=== PATIENT | female | born 1965 | race Caucasian/White ===

== ENCOUNTER 2019-11-08 13:31 | Emergency (ER) | payer OTHER, SELFPAY ==
[2019-11-08 13:38] VITALS: BP 155/79; PULSE 72; RESP 16; TEMP 37.2; O2SAT 99
--- NOTE | 2019-11-08 13:43 | ED.ABDPAIN ---
HPI - Abdominal Pain General Chief Complaint: Abdominal Pain Stated Complaint: upset stomach/diarrhea Time Seen by Provider: 11/08/19 13:43 Source: patient and RN notes reviewed History of Present Illness HPI narrative: Patient is a 53-year-old female who presents the urgent care with complaints of diarrhea for the last 2 to 3 days. Patient states that she was gone for the weekend and ate a bunch of crappy food . Patient states that she has been trying to follow a specific diet ever since her gallbladder has been removed approximately 1 year ago, but knows that she does not eat according to plan. 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 Patient states that she has been COVID tested and [place], which was negative. Patient states at that time she was hospitalized due to E. coli in the urine. Patient is now complaining of some lower abdominal cramping as well as the loose stools. Patient denies of any fever, nausea, vomiting. Patient has not taken anything for her symptoms [id number]. Patient denies of any urinary symptoms but does state that her urine is yellow . Patient's main concern is a work note. No other acute complaints. No acute distress noted. Patient read the plan of care. Related Data Home Medications Medication Instructions Recorded Confirmed primidone 250 mg PO DAILY 11/08/19 11/08/19 Allergies Allergy/AdvReac Type Severity Reaction Status Date / Time No Known Allergies Allergy Verified 11/08/19 13:48 Review of Systems Review of Systems: Narrative: CONSTITUTIONAL: Denies fever, chills, or sweats. EYES: Denies visual changes, redness, or discharge. ENT: Denies rhinorrhea, congestion, sore throat, or otalgia. CARDIOVASCULAR: Denies chest pain, palpitations, or edema. RESPIRATORY: Denies cough or dyspnea. GASTROINTESTINAL: Reports of lower abdominal cramping with loose stools, without nausea or vomiting GENITOURINARY: Denies dysuria or hematuria. SKIN: Denies rash or itching. MUSCULOSKELETAL: Denies back pain, joint pain, or myalgia. NEUROLOGIC: Denies headache, numbness, or weakness. All other systems reviewed are negative, except as documented in HPI. [facility] Family History Family History (Updated 08/03/18 @ 10:34 by DOCTOR UNKNOWN) Father Diabetes mellitus Sibling Hypertension Family history of malignant neoplasm of breast in first degree relative Other Family history of malignant neoplasm Social History Social History Smoking status: Current every day smoker Alcohol intake: never Comments At the time of my signature, I reviewed and agree with the nursing past medical, surgical, social, and family history. There is no relevant family history pertinent to the patient complaint. Exam Narrative: Exam Narrative: GENERAL: This is a well-nourished, well-developed patient, in no apparent distress. HEAD: normocephalic, atraumatic. EYES: PERRL. Sclera clear/white. Vision is grossly intact. EARS: External ears normal NOSE: External nose normal with no obvious nasal discharge, nares without redness, no rhinorrhea. THROAT: Mucous membranes moist NECK: Neck supple CARDIOVASCULAR: Regular rate and rhythm without murmurs, gallops, or rubs. RESPIRATORY: Clear to auscultation. Breath sounds equal bilaterally. No wheezes, rales, or rhonchi. GASTROINTESTINAL: Abdomen soft, diffuse lower abdominal tenderness, nondistended. Bowel sounds are active. No hepato-splenomegaly, or palpable masses. No guarding. SKIN: warm, intact with no suspicious lesions or rash, good texture and turgor. NEURO: awake, alert, and oriented to person, place and time. There were no obvious focal neurologic abnormalities. EXTREMITIES: No clubbing, cyanosis, or edema. BACK: Negative bilateral CVA tenderness Course Vital Signs Vital signs: Vital Signs Temperature 98.9 F 11/08/19 13:38 Pulse Rate 72 11/08/19 13:38 Respiratory Rate 16 11/08/19 13:38
== END 2019-11-08 14:20 | disposition home or self-care (01) ==
PROVIDERS: Emergency Provider Nurse Practitioner Family; PCP Nurse Practitioner
DX: R19.7 Diarrhea, unspecified (principal); G20 Parkinson's disease
CPT/HCPCS: 81003; 99212; G0463

== ENCOUNTER 2020-05-12 10:00 | Emergency (ER) | payer OTHER, SELFPAY ==
--- NOTE | ~2020-05-12 | XR_ITS ---
EXAMINATION: XR foot RT min 3V DATE: 05/12/2020 10:30 INDICATION: Right foot pain. TECHNIQUE: 4 views of right foot were obtained. COMPARISON: None. FINDINGS: Bone alignment is normal. No fracture. Joint spaces are well maintained. There are enthesop hytes at the posterior and plantar aspects of calcaneal tuberosity. IMPRESSION: 1. No fracture. Reviewed, dictated and finalized at location A. [facility] IMPRESSION: 1. No fracture.
[2020-05-12 10:04] VITALS: BP 181/72; PULSE 79; RESP 20; TEMP 36.7; O2SAT 99
[2020-05-12 10:26] VITALS: BP 181/72; PULSE 79; RESP 20; TEMP 36.7; O2SAT 99
--- NOTE | 2020-05-12 10:36 | ED.GENADULT ---
HPI - General Adult General Chief complaint: Extremity Injury, Lower Stated complaint: rt foot heel pain Time Seen by Provider: 05/12/20 10:25 Source: patient, RN notes reviewed and old records reviewed Mode of arrival: ambulatory Limitations: no limitations History of Present Illness HPI narrative: 54 year old female who presents to [facility] care with complaints of right heel pain for one week duration. Patient states that pain is a 2/10 at rest but increases to 7/10 with any weight bearing and becomes sharp. 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 Patient states that she knows no injury to her heel or foot, has applied bengay to her heel complaint: Pain to right heel Onset (ago): week(s) (1) Location: right and lower extremity (heel) Radiation: non-radiation Severity: moderate Severity scale (1-10): 7 (with ambulation) Quality: sharp Pain Consistency: constant Relieving factors: rest (reduces pain) Exacerbating factors: other (ambulation) Associated symptoms: denies other symptoms Treatments prior to arrival: other (applied bengay to heel) Related Data Home Medications Medication Instructions Recorded Confirmed primidone 250 mg PO BID 11/08/19 05/12/20 aspirin 81 mg PO DAILY 05/12/20 05/12/20 cholecalciferol (vitamin D3) 125 mcg PO DAILY 05/12/20 05/12/20 [Vitamin D3] sofylflmege-[id number]-[id number] 1 tablet PO DAILY 05/12/20 05/12/20 [glucosamine-chondroitin] Allergies Allergy/AdvReac Type Severity Reaction Status Date / Time No Known Allergies Allergy Verified 05/12/20 10:18 Review of Systems Review of Systems: Narrative: CONSTITUTIONAL: Denies fever, chills, or sweats. EYES: Denies visual changes, redness, or discharge. ENT: Denies rhinorrhea, congestion, sore throat, or otalgia. CARDIOVASCULAR: Denies chest pain, palpitations, or edema. RESPIRATORY: Denies cough or dyspnea. GASTROINTESTINAL: Denies abdominal pain, nausea, vomiting, or diarrhea. GENITOURINARY: Denies dysuria or hematuria. SKIN: Denies rash or itching. MUSCULOSKELETAL: Denies back pain,positive for right heel pain, or myalgia. NEUROLOGIC: Denies headache, numbness, or weakness. PSYCHIATRIC: Denies anxiety or depression. All systems reviewed & are unremarkable except as noted in HPI and below PMFSH Past Medical History Medical History (Updated 05/12/20 @ 11:09 by Ning Rios NP) DVT (deep venous thrombosis) Endometriosis Fracture of left leg Fracture of right upper limb Hypertension Parkinson disease Surgical History Surgical History (Updated 05/12/20 @ 11:00 by Ning Rios NP) H/O tubal ligation History of cholecystectomy History of endometrial ablation Previous section Family History Family History (Updated 05/12/20 @ 11:02 by Ning Rios NP) Father Diabetes mellitus Sibling Family history of malignant neoplasm of breast in first degree relative Hypertension Other Family history of malignant neoplasm Social History Social History (Updated 05/12/20 @ 11:02 by Ning Rios NP) Smoking packs per day: 1 Smoking cigarettes per day: 20.0 Years smoked: 35 Smoking pack-years: 35.00 Smoking status: Current every day smoker Tobacco type: cigarettes Alcohol intake: never Substance use: never Living arrangements: with family Gender identity (if verbalized by the patient): Female Comments At time of signature, agree with nursing past medical, surgical, social and family history. There is no relevant family history pertinent to the presenting complaint Exam Narrative: Exam Narrative: GENERAL: Well-appearing, well-nourished, and in no acute distress. HEAD: Normocephalic, atraumatic. EYES: PERRLA and EOMI. ENT: Nares clear, no rhinorrhea or epistaxis. Mucous membranes moist. NECK: Supple.no lymphadenopathy CHEST: Clear to auscultation. No respiratory distress.SAO2 99% on room air HEART: Regular rate and rhythm. No murmur heard.
== END 2020-05-12 10:58 | disposition home or self-care (01) ==
PROVIDERS: Emergency Provider Registered Nurse
DX: M77.31 Calcaneal spur, right foot (principal); F17.210 Nicotine dependence, cigarettes, uncomplicated; I10 Essential (primary) hypertension; G20 Parkinson's disease; N80.9 Endometriosis, unspecified; Z86.718 Personal history of other venous thrombosis and embolism
CPT/HCPCS: 73630; 99213; G0463

== ENCOUNTER 2021-06-10 13:18 | Emergency (ER) | payer OTHER, SELFPAY ==
[2021-06-10 13:23] VITALS: BP 128/75; PULSE 94; RESP 20; TEMP 37.3; O2SAT 98
--- NOTE | 2021-06-10 13:26 | ED.URI ---
HPI - URI/Sore Throat General Chief Complaint: Upper Respiratory Infection Stated Complaint: congestion cough and sore throat Time Seen by Provider: 06/10/21 13:26 Source: patient and RN notes reviewed History of Present Illness HPI Narrative: Patient is a 55-year-old female who presents the urgent care with complaints of a sore throat, cough and congestion for the last 3 days. Patient states that her son is been complaining of a sore throat and refuses to get evaluated. Patient states that she just wants to make sure she is not contagious . Patient has been taking Tylenol Cold and flu. Denies any fever, chills, nausea, vomiting, shortness of breath or chest tightness. No other acute complaints. No acute distress noted. Patient aware of the plan of care. Some parts of this dictation were generated by voice recognition software and may contain typographical and/or grammatical inaccuracies. Related Data Home Medications Medication Instructions Recorded Confirmed primidone 250 mg PO BID 11/08/19 05/12/20 aspirin [Baby Aspirin] 81 mg PO DAILY 06/10/21 06/10/21 lisinopril 20 mg PO DAILY 06/10/21 06/10/21 Allergies Allergy/AdvReac Type Severity Reaction Status Date / Time No Known Allergies Allergy Verified 06/10/21 13:35 Review of Systems Review of Systems: CONSTITUTIONAL: Denies fever, chills, or sweats. EYES: Denies visual changes, redness, or discharge. ENT: Reports of congestion and sore throat CARDIOVASCULAR: Denies chest pain, palpitations, or edema. RESPIRATORY: Reports a mild nonproductive cough without dyspnea GASTROINTESTINAL: Denies abdominal pain, nausea, vomiting, or diarrhea. GENITOURINARY: Denies dysuria or hematuria. SKIN: Denies rash or itching. MUSCULOSKELETAL: Denies back pain, joint pain, or myalgia. NEUROLOGIC: Denies headache, numbness, or weakness. All other systems reviewed are negative, except as documented in HPI. [facility] Past Medical History Medical History (Updated 06/10/21 @ 13:42 by MINH Conklin) DVT (deep venous thrombosis) Endometriosis Fracture of left leg Fracture of right upper limb Hypertension Parkinson disease Surgical History Surgical History (Updated 05/12/20 @ 11:00 by Ning Rios NP) H/O tubal ligation History of cholecystectomy History of endometrial ablation Previous section Family History Family History (Updated 05/12/20 @ 11:02 by Ning Rios NP) Father Diabetes mellitus Sibling Family history of malignant neoplasm of breast in first degree relative Hypertension Other Family history of malignant neoplasm Social History Social History (Updated 05/12/20 @ 11:02 by Ning Rios NP) Smoking packs per day: 1 Smoking cigarettes per day: 20.0 Years smoked: 35 Smoking pack-years: 35.00 Smoking status: Current every day smoker Tobacco type: cigarettes Alcohol intake: never Substance use: never Gender identity (if verbalized by the patient): Female Comments At the time of my signature, I reviewed and agree with the nursing past medical, surgical, social, and family history. There is no relevant family history pertinent to the patient complaint. Exam Narrative: GENERAL: This is a well-nourished, well-developed patient, in no apparent distress. HEAD: normocephalic, atraumatic. EYES: PERRL. Sclera clear/white. Vision is grossly intact. EARS: External ears normal, auditory canals clear and without drainage, TMs normal without perforation. Hearing grossly intact. NOSE: External nose normal with no obvious nasal discharge, nares without redness, no rhinorrhea. THROAT: Mucous membranes moist, posterior pharynx clear. Moderate postnasal drainage without exudate or ulceration NECK: Neck supple CARDIOVASCULAR: Regular rate and rhythm without murmurs, gallops, or rubs. RESPIRATORY: Clear to auscultation. Breath sounds equal bilaterally. No wheezes, rales, or rhonchi. SKIN: warm, intact with no suspi
== END 2021-06-10 13:45 | disposition home or self-care (01) ==
PROVIDERS: Emergency Provider Nurse Practitioner Family; PCP Nurse Practitioner Family
DX: J02.9 Acute pharyngitis, unspecified (principal); F17.210 Nicotine dependence, cigarettes, uncomplicated; N80.9 Endometriosis, unspecified; I10 Essential (primary) hypertension; G20 Parkinson's disease; Z86.718 Personal history of other venous thrombosis and embolism
CPT/HCPCS: 87081; 87880; 99213; G0463

== ENCOUNTER 2021-12-02 10:04 | Emergency (ER) | payer OTHER, SELFPAY ==
[2021-12-02 10:10] VITALS: BP 150/92; PULSE 87; RESP 20; TEMP 36.6; O2SAT 100
--- NOTE | 2021-12-02 10:28 | ED.FEMALEGU ---
HPI - Female Genitourinary General Chief complaint: Urogenital-Female Stated complaint: Urinary Problem Time Seen by Provider: 12/02/21 10:28 Source: patient and RN notes reviewed Mode of arrival: ambulatory Limitations: no limitations History of Present Illness HPI Narrative: 56-year-old female presented for complaint of urinary frequency, urgency and burning with urination since yesterday. She endorses waking this morning with a stomachache which is since resolved. She denies hematuria, nausea, vomiting, diarrhea, flank pain, fevers or chills. She has not taken anything for symptoms. Patient is not sexually active. Related Data Home Medications Medication Instructions Recorded Confirmed aspirin 81 mg chewable tablet 81 mg PO DAILY 06/10/21 12/02/21 lisinopril 10 mg tablet 10 mg PO DAILY 12/02/21 12/02/21 lisinopril 20 mg tablet 20 mg PO DAILY 12/02/21 12/02/21 primidone 250 mg tablet 250 mg PO DAILY 12/02/21 12/02/21 topiramate 25 mg tablet 25 mg PO DAILY 12/02/21 12/02/21 Allergies Allergy/AdvReac Type Severity Reaction Status Date / Time No Known Allergies Allergy Verified 12/02/21 10:19 Review of Systems Review of Systems: CONSTITUTIONAL: Denies body aches, fever, chills, or sweats. CARDIOVASCULAR: Denies chest pain, palpitations, or edema. RESPIRATORY: Denies cough or dyspnea. GASTROINTESTINAL: Denies abdominal pain, nausea, vomiting, or diarrhea. GENITOURINARY: Reports dysuria, frequency, urgency, denies hematuria, flank pain SKIN: Denies rash, itching, or wounds. MUSCULOSKELETAL: Denies back pain or myalgia. [facility] Past Medical History Medical History DVT (deep venous thrombosis) Endometriosis Fracture of left leg Fracture of right upper limb Hypertension Parkinson disease Surgical History Surgical History H/O tubal ligation History of cholecystectomy History of endometrial ablation Previous section Family History Family History Father Diabetes mellitus Sibling Family history of malignant neoplasm of breast in first degree relative Hypertension Other Family history of malignant neoplasm Social History Social History Smoking packs per day: 1 Smoking cigarettes per day: 20.0 Years smoked: 35 Smoking pack-years: 35.00 Smoking status: Current every day smoker Tobacco type: cigarettes Alcohol intake: never Substance use: never Gender identity (if verbalized by the patient): Female Comments At time of signature, I have reviewed and agree with nursing past medical, surgical, social and family history unless otherwise noted. Please see nursing chart for further information. There is no relevant family history pertinent to the presenting complaint Exam Narrative: GENERAL: Well-appearing and in no acute distress. CHEST: Clear to auscultation. HEART: Regular rate and rhythm. ABDOMEN: Soft, nontender, nondistended, normal active bowel sounds. No CVA tenderness MUSCULOSKELETAL: No bony tenderness. SKIN: Warm, dry, no rash. NEURO: No focal deficits. Alert and oriented x3. Gait steady. PSYCH: Normal affect. Course Course Emergency Course: Patient is aware of diagnosis, understands and agrees to treatment plan. Anticipatory guidance given. Patient agrees to follow-up as directed and is aware of reasons to seek care at the emergency department. Portions of this record may have been created with voice recognition software Level of Care: Express Care Visit Vital Signs Vital signs: Vital Signs Temperature 97.9 F 12/02/21 10:10 Pulse Rate 87 12/02/21 10:10 Respiratory Rate 20 12/02/21 10:10 Blood Pressure 150/92 H 12/02/21 10:10 Pulse Oximetry 100 12/02/21 10:10 Oxygen Delivery Room Air 12/02/21 10:10
== END 2021-12-02 10:43 | disposition home or self-care (01) ==
PROVIDERS: Emergency Provider Nurse Practitioner Family; PCP Nurse Practitioner Family
DX: N39.0 Urinary tract infection, site not specified (principal); F17.210 Nicotine dependence, cigarettes, uncomplicated; N80.9 Endometriosis, unspecified; I10 Essential (primary) hypertension; G20 Parkinson's disease; Z86.718 Personal history of other venous thrombosis and embolism
CPT/HCPCS: 81003; 87077; 87086; 87186; 99213; G0463

== ENCOUNTER 2022-01-19 10:20 | Emergency (ER) | payer OTHER, SELFPAY ==
[2022-01-19 10:40] VITALS: BP 142/72; PULSE 76; RESP 20; TEMP 36.7; O2SAT 98
--- NOTE | 2022-01-19 12:25 | ED.URI ---
HPI - URI/Sore Throat General Chief Complaint: Upper Respiratory Infection Stated Complaint: Cough/Chest Congestion Time Seen by Provider: 01/19/22 12:25 Source: patient, RN notes reviewed and old records reviewed Mode of arrival: ambulatory Limitations: no limitations History of Present Illness HPI Narrative: 56-year-old presents female who presents to [facility] care with complaints of fatigue on Thursday with cough and shortness of breath and congestion last night with continued symptoms today along with sore throat. Patient reports that she took a COVID test on Thursday which was negative.Patient reports that she took cough medication last night and used her inhaler. Patient has long history of tobacco use. Patient states no known fever but has had chills and sweats. MD elicited complaint: cough and other (chest congestion) Pertinent past history: other (tobacco abuse) Onset (ago): day(s) (2) Treatments prior to arrival: other (cough medication and inhaler) Related Data Home Medications Medication Instructions Recorded Confirmed aspirin 81 mg chewable tablet 81 mg PO DAILY 06/10/21 12/02/21 lisinopril 10 mg tablet 10 mg PO DAILY 12/02/21 12/02/21 lisinopril 20 mg tablet 20 mg PO DAILY 12/02/21 12/02/21 primidone 250 mg tablet 250 mg PO DAILY 12/02/21 12/02/21 Allergies Allergy/AdvReac Type Severity Reaction Status Date / Time No Known Allergies Allergy Verified 12/02/21 10:19 Review of Systems Review of Systems: CONSTITUTIONAL: Reports malaise, chills, sweats reports no known fevers. EYES: Denies visual changes, redness, or discharge. ENT: Reports rhinorrhea, congestion, sinus pain,no otalgia and sore throat. CARDIOVASCULAR: Denies chest pain, palpitations, or edema. RESPIRATORY: Reports cough. and some dyspnea. GASTROINTESTINAL: Denies abdominal pain, nausea, vomiting, diarrhea SKIN: Denies rash or itching. MUSCULOSKELETAL: Reports myalgia. NEUROLOGIC: Denies headache. All systems reviewed & are unremarkable except as noted in HPI and below PMFSH Past Medical History Medical History DVT (deep venous thrombosis) Endometriosis Fracture of left leg Fracture of right upper limb Hypertension Parkinson disease Surgical History Surgical History H/O tubal ligation History of cholecystectomy History of endometrial ablation Previous section Family History Family History Father Diabetes mellitus Sibling Family history of malignant neoplasm of breast in first degree relative Hypertension Other Family history of malignant neoplasm Social History Social History Smoking packs per day: 1 Smoking cigarettes per day: 20.0 Years smoked: 35 Smoking pack-years: 35.00 Smoking status: Current every day smoker Tobacco type: cigarettes Alcohol intake: never Substance use: never Gender identity (if verbalized by the patient): Female Comments At time of signature, agree with nursing past medical, surgical, social and family history. There is no relevant family history pertinent to the presenting complaint Exam Narrative: GENERAL: Well-appearing, well-nourished, and in no acute distress. HEAD: Normocephalic EYES: PERRLA, conjunctivae clear ENT: Nares clear, turbinates edematous and erythematous, yellow discharge. Mucous membranes moist. TM pearly gonzales with dull light reflex bilaterally; no tragal tenderness. Oropharynx erythematous without lesions. Tonsils not present and without exudate, no drooling, no hoarseness, no trismus, uvula midline.post nasal drainage NECK: Supple. No lymphadenopathy CHEST: Decreased to auscultation, breath sounds equal. No wheezing, rhonchi, rales, or stridor. No respiratory distress, speaks in full sentences.harsh cough SA
== END 2022-01-19 13:00 | disposition home or self-care (01) ==
PROVIDERS: Emergency Provider Registered Nurse; PCP Nurse Practitioner Family
DX: J11.1 Influenza due to unidentified influenza virus with other respiratory manifestations (principal); R05.9 Cough, unspecified; Z86.718 Personal history of other venous thrombosis and embolism; I10 Essential (primary) hypertension; G20 Parkinson's disease; F17.200 Nicotine dependence, unspecified, uncomplicated
CPT/HCPCS: 87081; 87804; 87880; 99213; G0463

== ENCOUNTER 2022-03-06 15:23 | Emergency (ER) | payer OTHER, SELFPAY ==
[2022-03-06 15:26] VITALS: BP 138/80; PULSE 80; RESP 20; TEMP 36.5; O2SAT 98
--- NOTE | 2022-03-06 15:28 | ED.URI ---
HPI - URI/Sore Throat General Chief Complaint: Upper Respiratory Infection Stated Complaint: cold flu Time Seen by Provider: 03/06/22 15:28 Source: patient and RN notes reviewed History of Present Illness HPI Narrative: Patient is a 56-year-old female who presents to urgent care with complaints of cold-like symptoms with nasal congestion, postnasal drainage, cough and chest congestion. Patient states her symptoms started approximately 6 or 7 days ago and has settled into her chest . Patient states that she did have fever initially which has since resolved. Patient has been using her inhaler as well as Mucinex and Tylenol as needed. No other acute complaints. No acute distress noted. Patient aware of the plan of care. Some parts of this dictation were generated by voice recognition software and may contain typographical and/or grammatical inaccuracies. Related Data Home Medications Medication Instructions Recorded Confirmed aspirin 81 mg chewable tablet 81 mg PO DAILY 06/10/21 03/06/22 lisinopril 20 mg tablet 20 mg PO DAILY 12/02/21 03/06/22 primidone 250 mg tablet 250 mg PO BID 12/02/21 03/06/22 Allergies Allergy/AdvReac Type Severity Reaction Status Date / Time No Known Allergies Allergy Verified 03/06/22 15:32 Review of Systems Review of Systems: CONSTITUTIONAL: Denies fever, chills, or sweats. EYES: Denies visual changes, redness, or discharge. ENT: reports postnasal drainage and congestion CARDIOVASCULAR: Denies chest pain, palpitations, or edema. RESPIRATORY: Reports of cough with intermittent dyspnea GASTROINTESTINAL: Denies abdominal pain, nausea, vomiting, or diarrhea. GENITOURINARY: Denies dysuria or hematuria. SKIN: Denies rash or itching. MUSCULOSKELETAL: Denies back pain, joint pain, or myalgia. NEUROLOGIC: Denies headache, numbness, or weakness. All other systems reviewed are negative, except as documented in HPI. [facility] Past Medical History Medical History DVT (deep venous thrombosis) Endometriosis Fracture of left leg Fracture of right upper limb Hypertension Parkinson disease Surgical History Surgical History H/O tubal ligation History of cholecystectomy History of endometrial ablation Previous section Family History Family History Father Diabetes mellitus Sibling Family history of malignant neoplasm of breast in first degree relative Hypertension Other Family history of malignant neoplasm Social History Social History Smoking packs per day: 1 Smoking cigarettes per day: 20.0 Years smoked: 35 Smoking pack-years: 35.00 Smoking status: Current every day smoker Tobacco type: cigarettes Alcohol intake: never Substance use: never Gender identity (if verbalized by the patient): Female Comments At the time of my signature, I reviewed and agree with the nursing past medical, surgical, social, and family history. There is no relevant family history pertinent to the patient complaint. Exam Narrative: GENERAL: This is a well-nourished, well-developed patient, in no apparent distress. HEAD: normocephalic, atraumatic. EYES: PERRL. Sclera clear/white. Vision is grossly intact. EARS: External ears normal, auditory canals clear and without drainage, TMs normal without perforation. Hearing grossly intact. NOSE: External nose normal with no obvious nasal discharge, nares without redness, no rhinorrhea. THROAT: Mucous membranes moist, posterior pharynx clear. moderate postnasal drainage NECK: Neck supple, non-tender without lymphadenopathy RESPIRATORY: minimal expiratory crackles bibasilar otherwise clear SKIN: warm, intact with no suspicious lesions or rash, good texture and turgor. NEURO: awake, alert, and oriented to person, p
[2022-03-06 15:34] VITALS: BP 138/80; PULSE 80; RESP 20; TEMP 36.5; O2SAT 98
== END 2022-03-06 16:03 | disposition home or self-care (01) ==
PROVIDERS: Emergency Provider Nurse Practitioner Family; PCP Nurse Practitioner Family
DX: J40 Bronchitis, not specified as acute or chronic (principal); I10 Essential (primary) hypertension; Z79.82 Long term (current) use of aspirin; Z86.718 Personal history of other venous thrombosis and embolism; G20 Parkinson's disease; F17.210 Nicotine dependence, cigarettes, uncomplicated
CPT/HCPCS: 87804; 99213; G0463

== ENCOUNTER 2022-04-17 08:27 | Emergency (ER) | payer OTHER, SELFPAY ==
[2022-04-17 08:32] VITALS: BP 135/82; PULSE 81; RESP 20; TEMP 36.7; O2SAT 98
--- NOTE | 2022-04-17 08:40 | ED.URI ---
HPI - URI/Sore Throat General Chief Complaint: Upper Respiratory Infection Stated Complaint: cold Source: patient and RN notes reviewed History of Present Illness HPI Narrative: 56-year-old female smoker with history of Parkinson's, presents urgent care with complaints of continuous cough x5 days. Patient denies any fevers, chills, shortness of breath, chest pain, vomiting, or diarrhea. Patient states she has been taking Mucinex DM as as well as her inhaler at home without relief. Related Data Home Medications Medication Instructions Recorded Confirmed aspirin 81 mg chewable tablet 81 mg PO DAILY 06/10/21 04/17/22 lisinopril 20 mg tablet 20 mg PO DAILY 12/02/21 04/17/22 primidone 250 mg tablet 250 mg PO BID 12/02/21 04/17/22 Allergies Allergy/AdvReac Type Severity Reaction Status Date / Time No Known Allergies Allergy Verified 04/17/22 08:34 Review of Systems Review of Systems: CONSTITUTIONAL: Denies fever, chills, or sweats. EYES: Denies visual changes, redness, or discharge. ENT: Denies otalgia and sore throat CARDIOVASCULAR: Denies chest pain, palpitations, or edema. RESPIRATORY: Reports cough. GASTROINTESTINAL: Denies abdominal pain, nausea, vomiting, or diarrhea. GENITOURINARY: Denies dysuria or hematuria. SKIN: Denies rash or itching. MUSCULOSKELETAL: Denies back pain, joint pain, or myalgia. NEUROLOGIC: Denies headache, numbness, or weakness. [facility] Past Medical History Medical History DVT (deep venous thrombosis) Endometriosis Fracture of left leg Fracture of right upper limb Hypertension Parkinson disease Surgical History Surgical History H/O tubal ligation History of cholecystectomy History of endometrial ablation Previous section Family History Family History Father Diabetes mellitus Sibling Family history of malignant neoplasm of breast in first degree relative Hypertension Other Family history of malignant neoplasm Social History Social History Smoking packs per day: 1 Smoking cigarettes per day: 20.0 Years smoked: 35 Smoking pack-years: 35.00 Smoking status: Current every day smoker Tobacco type: cigarettes Alcohol intake: never Substance use: never Living arrangements: with family Gender identity (if verbalized by the patient): Female Comments At the time of my signature, I reviewed and agree with the nursing past medical, surgical, social, and family history. There is no relevant family history pertinent to the patient complaint. Exam Narrative: GENERAL: This is a well-nourished, well-developed patient, in no apparent distress. HEAD: normocephalic, atraumatic. EYES: PERRL. Sclera clear/white. Vision is grossly intact. NOSE: External nose normal with no obvious nasal discharge, nares without redness, no rhinorrhea. THROAT: Mucous membranes moist, posterior pharynx clear. NECK: Neck supple, non-tender without lymphadenopathy, masses or thyromegaly. CARDIOVASCULAR: Regular rate and rhythm without murmurs, gallops, or rubs. RESPIRATORY: Clear to auscultation. Breath sounds equal bilaterally. No wheezes, rales, or rhonchi. GASTROINTESTINAL: Abdomen soft, non-tender, nondistended. Bowel sounds are active. No hepato-splenomegaly, or palpable masses. No guarding. SKIN: warm, intact with no suspicious lesions or rash, good texture and turgor. NEURO: awake, alert, and oriented to person, place and time. There were no obvious focal neurologic abnormalities. Course Course Level of Care: Express Care Visit Vital Signs Vital signs: Vital Signs Temperature 98.1 F 04/17/22 08:32 Pulse Rate 81 04/17/22 08:32 Respiratory Rate 20 04/17/22 08:32 Blood Pressure 135/82 04/17/22 08:32 Pulse Oximetry 98 04/17/22 08:
== END 2022-04-17 08:59 | disposition home or self-care (01) ==
PROVIDERS: Emergency Provider Nurse Practitioner Family; PCP Nurse Practitioner Family
DX: J40 Bronchitis, not specified as acute or chronic (principal); F17.210 Nicotine dependence, cigarettes, uncomplicated; N80.9 Endometriosis, unspecified; I10 Essential (primary) hypertension; G20 Parkinson's disease; Z86.718 Personal history of other venous thrombosis and embolism; Z79.82 Long term (current) use of aspirin
CPT/HCPCS: 99213; G0463

== ENCOUNTER 2022-12-25 09:35 | Emergency (ER) | payer OTHER, SELFPAY ==
[2022-12-25 09:40] VITALS: BP 120/71; PULSE 78; RESP 18; TEMP 36.4; O2SAT 97
--- NOTE | 2022-12-25 10:01 | ED.GENADULT ---
HPI - General Adult General Chief complaint: Upper Respiratory Infection Stated complaint: throat Time Seen by Provider: 12/25/22 10:01 Source: patient, RN notes reviewed and old records reviewed Mode of arrival: ambulatory Limitations: no limitations History of Present Illness HPI narrative: 57-year-old female presents to the [facility] with complaints of throat pain that started last night. Patient states she was not feeling well starting on Thursday. States that she took an at home COVID test on Thursday, reports it being negative. Denies fevers, chest pain, pain or fevers. no treatment [employer] Treatments prior to arrival: none Related Data Home Medications Medication Instructions Recorded Confirmed aspirin 81 mg chewable tablet 81 mg PO DAILY 06/10/21 12/25/22 lisinopril 20 mg tablet 20 mg PO DAILY 12/02/21 12/25/22 primidone 250 mg tablet 250 mg PO BID 12/02/21 12/25/22 Allergies Allergy/AdvReac Type Severity Reaction Status Date / Time No Known Allergies Allergy Verified 12/25/22 10:08 Review of Systems Review of Systems: All systems reviewed & are unremarkable except as noted in HPI and below Constitutional: Constitutional: Reports no additional constitutional complaints Eyes: Eyes: Reports no additional eye complaints ENT: Reports as per HPI and Reports sore throat Cardiovascular: Cardiovascular: Reports no additional cardiovascular complaints, Denies chest pain and Denies dyspnea Respiratory: Respiratory: Reports no additional respiratory complaints, Denies chest congestion, Denies cough and Denies dyspnea Gastrointestinal: Gastrointestinal: Reports no additional gastrointestinal complaints, Denies abdominal pain, Denies nausea and Denies vomiting Musculoskeletal: Musculoskeletal: Reports no additional musculoskeletal complaints Integumentary/Breasts: Skin/Breast: Reports system reviewed and no additional complaints, except as docu Neurologic: Reports system reviewed and no additional complaints, except as documented Psychiatric: Psychiatric: Reports no additional psychiatric complaints Allergic/Immunologic: Allergic/Immunologic: Reports no additional allergic/immunologic complaints [facility] Past Medical History Medical History DVT (deep venous thrombosis) Endometriosis Fracture of left leg Fracture of right upper limb Hypertension Parkinson disease Surgical History Surgical History H/O tubal ligation History of cholecystectomy History of endometrial ablation Previous section Family History Family History Father Diabetes mellitus Sibling Family history of malignant neoplasm of breast in first degree relative Hypertension Other Family history of malignant neoplasm Social History Social History Smoking packs per day: 1 Smoking cigarettes per day: 20.0 Years smoked: 35 Smoking pack-years: 35.00 Smoking status: Current every day smoker Tobacco type: cigarettes Alcohol intake: never Substance use: never Living arrangements: with family Gender identity (if verbalized by the patient): Female Comments At the time of my signature, I reviewed and agree with the nursing past medical, surgical, social, and family history. There is no relevant family history pertinent to the patient complaint. Exam Const: General: cooperative, healthy appearing, comfortable, no acute distress, well developed, alert and well nourished Nutritional Appearance: well nourished and obese Orientation/consciousness: patient oriented x3 Limitations: no limitations HENMT: Head: normal to inspection Ears: hearing grossly normal bilaterally, external ears normal, TM's normal bilaterally and EAC's normal Face/Nose/Sinus: Normal external nose present, Normal nares present,
== END 2022-12-25 10:21 | disposition home or self-care (01) ==
PROVIDERS: Emergency Provider Nurse Practitioner; PCP Nurse Practitioner Family
DX: J02.9 Acute pharyngitis, unspecified (principal); F17.210 Nicotine dependence, cigarettes, uncomplicated; I10 Essential (primary) hypertension; G20.A1 Parkinson's disease without dyskinesia, without mention of fluctuations; N80.9 Endometriosis, unspecified; Z86.718 Personal history of other venous thrombosis and embolism; Z79.82 Long term (current) use of aspirin
CPT/HCPCS: 87081; 87880; 99213; G0463

== ENCOUNTER 2023-11-13 17:49 | Emergency (ER) | payer OTHER, SELFPAY ==
--- NOTE | ~2023-11-13 | XR_ITS ---
XR foot RT min 3V Ordering provider: Denia Carrizales APRN History: . DROPPED TABLE ON DORSAL FOOT, METATARSAL PAIN/BRUISING . Comparison: None. FINDINGS: BONES: No acute fracture or dislocation. Ossification of the insertion of the tendo Achilles. JOINT SPACES: Normal. No tarsal coalition. SOFT TISSUES: Soft tissue swelling over the dorsum of the foot. IMPRESSION: No acute osseous abnormality of the right foot. Reviewed, dictated and finalized at location A.
[2023-11-13 17:54] VITALS: BP 142/69; PULSE 91; RESP 16; TEMP 36.9; O2SAT 98
[2023-11-13 18:05] VITALS: BP 142/69; PULSE 91; RESP 16; TEMP 36.9; O2SAT 98
--- NOTE | 2023-11-13 18:10 | ED.LOWEXIN ---
HPI - Extremity Injury (Lower) General Chief Complaint: Extremity Injury, Lower Stated Complaint: Rt foot injury Time Seen by Provider: 11/13/23 18:10 Source: patient, RN notes reviewed and old records reviewed Mode of arrival: ambulatory Limitations: no limitations History of Present Illness HPI Narrative: 57-year-old female to Express Care with complaint of right dorsal pain. Patient reports that approximately 1 hour prior to arrival she accidentally dropped the edge of a wooden table onto the top of her right foot. Patient endorses issues with right foot and states she already sees a medical research assistant for these issues. Patient able to ambulate with slow but steady gait. Patient reports pain is worse with activity and weight-bearing. Patient states she attempted to treat at home with ice and elevation prior to heading to Express [facility]. patient denies numbness, tingling, weakness, allergies. Patient resting comfortably in exam room. Respirations even and nonlabored. Patient in no acute distress. Related Data Home Medications Medication Instructions Recorded Confirmed aspirin 81 mg chewable tablet 81 mg PO DAILY 06/10/21 12/25/22 lisinopril 20 mg tablet 20 mg PO DAILY 12/02/21 12/25/22 primidone 250 mg tablet 250 mg PO BID 12/02/21 12/25/22 Allergies Allergy/AdvReac Type Severity Reaction Status Date / Time No Known Allergies Allergy Verified 11/13/23 17:51 Review of Systems Review of Systems: All systems reviewed & are unremarkable except as noted in HPI and below Constitutional: Constitutional: Reports no additional constitutional complaints Eyes: Eyes: Reports no additional eye complaints ENT: Reports system reviewed and no additional complaints, except as documented Cardiovascular: Cardiovascular: Reports no additional cardiovascular complaints, Denies chest pain and Denies dyspnea Respiratory: Respiratory: Reports no additional respiratory complaints, Denies cough and Denies dyspnea Musculoskeletal: Musculoskeletal: Reports as per HPI and Reports other ( Right dorsal foot pain and swelling) Neurologic: Reports system reviewed and no additional complaints, except as documented Psychiatric: Psychiatric: Reports no additional psychiatric complaints PMFSH Past Medical History Medical History DVT (deep venous thrombosis) Endometriosis Fracture of left leg Fracture of right upper limb Hypertension Parkinson disease Surgical History Surgical History H/O tubal ligation History of cholecystectomy History of endometrial ablation Previous section Family History Family History Father Diabetes mellitus Sibling Family history of malignant neoplasm of breast in first degree relative Hypertension Other Family history of malignant neoplasm Social History Social History Smoking packs per day: 1 Smoking cigarettes per day: 20.0 Years smoked: 35 Smoking pack-years: 35.00 Smoking status: Current every day smoker Tobacco type: cigarettes Alcohol intake: never Substance use: never Living arrangements: with family Gender identity (if verbalized by the patient): Female Comments At the time of my signature, I reviewed and agree with the nursing past medical, surgical, social, and family history. There is no relevant family history pertinent to the patient complaint. Exam Const: General: cooperative, no acute distress, alert, in distress mild ( pain), uncomfortable and well nourished Nutritional Appearance: well nourished Orientation/consciousness: patient oriented x3 Limitations: no limitations HENMT: Head: normal to inspection Ears: external ears normal Face/Nose/Sinus: Normal external nose present, Normal nares present, normal facial
== END 2023-11-13 19:02 | disposition home or self-care (01) ==
PROVIDERS: Emergency Provider Nurse Practitioner Family; PCP Nurse Practitioner Family
DX: S90.31XA Contusion of right foot, initial encounter (principal); W20.8XXA Other cause of strike by thrown, projected or falling object, initial encounter; F17.210 Nicotine dependence, cigarettes, uncomplicated; I10 Essential (primary) hypertension; G20.A1 Parkinson's disease without dyskinesia, without mention of fluctuations; N80.9 Endometriosis, unspecified; Z86.718 Personal history of other venous thrombosis and embolism; Z79.82 Long term (current) use of aspirin
CPT/HCPCS: 73630; 99213; G0463

== ENCOUNTER 2024-02-22 11:22 | Emergency (ER) | payer OTHER, SELFPAY ==
[2024-02-22 11:26] VITALS: BP 112/64; PULSE 88; RESP 20; TEMP 36.9; O2SAT 98
--- NOTE | 2024-02-22 12:05 | ED.EYEPROB ---
HPI - Eye Problem General Chief complaint: Eye Problems Stated complaint: poss pink eye Time Seen by Provider: 02/22/24 11:56 Source: patient and RN notes reviewed Mode of arrival: ambulatory Limitations: no limitations History of Present Illness HPI Narrative: Patient presents today complaining of left eye itching, watering, redness, and irritation since last night. She now has some photophobia and blurriness. She has tried allergy pill, cold compresses, and [id number] drops. States she has also been rubbing the eye since last night. Reports that the right eye has now become itchy this morning. She does not were glasses or contacts. She also reports rhinorrhea since yesterday. Related Data Home Medications ?Medication ?Instructions ?Recorded ?Confirmed ?Last Taken ?Type aspirin 81 mg chewable tablet 81 mg PO DAILY 06/10/21 12/25/22 Unknown History lisinopril 20 mg tablet 20 mg PO DAILY 12/02/21 12/25/22 Unknown History primidone 250 mg tablet 250 mg PO BID 12/02/21 12/25/22 Unknown History albuterol sulfate 90 mcg/actuation inhalation 02/22/24 Unknown History aerosol inhaler pregabalin 100 mg capsule mg 02/22/24 Unknown History Allergies Allergy/AdvReac Type Severity Reaction Status Date / Time No Known Allergies Allergy Verified 11/13/23 17:51 Review of Systems Review of Systems: CONSTITUTIONAL: Denies body aches, fever, chills, or sweats. EYES: + blurriness, redness, photophobia, watering itchiness ENT: Denies congestion, sore throat, or otalgia.+ rhinorrhea CARDIOVASCULAR: Denies chest pain, palpitations, or edema. RESPIRATORY: Denies cough or dyspnea. GASTROINTESTINAL: Denies abdominal pain, nausea, vomiting, or diarrhea. GENITOURINARY: Denies dysuria or hematuria. SKIN: Denies rash, itching, or wounds. MUSCULOSKELETAL: Denies back pain, joint pain, or myalgia. NEUROLOGIC: Denies headache, numbness, tingling, or weakness. PSYCH: Denies depression or anxiety. [facility] Past Medical History Medical History DVT (deep venous thrombosis) Fracture of left leg Fracture of right upper limb Endometriosis Hypertension Parkinson disease Surgical History Surgical History History of cholecystectomy History of endometrial ablation Previous section H/O tubal ligation Family History Family History Father Diabetes mellitus Sibling Family history of malignant neoplasm of breast in first degree relative Hypertension Other Family history of malignant neoplasm Social History Social History Smoking packs per day: 1 Smoking cigarettes per day: 20.0 Years smoked: 35 Smoking pack-years: 35.00 Smoking status: Current every day smoker Tobacco type: cigarettes Alcohol intake: never Substance use: never Living arrangements: with family Gender identity (if verbalized by the patient): Female Comments At time of signature, I have reviewed and agree with nursing past medical, surgical, social and family history unless otherwise noted. Please see nursing chart for further information. There is no relevant family history pertinent to the presenting complaint Exam Narrative: GENERAL: Well-appearing, well-nourished, and in no acute distress. HEAD: Normocephalic, atraumatic. EYES: EOMI. PERRL. Right eye normal. Left eye mild to moderately injected. No active drainage. Lids and lashes normal. ENT: Mucous membranes pink and moist. NECK: Normal AROM. CHEST: No respiratory distress. EXTREMITIES: Normal range of motion. No edema. SKIN: Warm, dry, no rash. Capillary refill normal. Normal skin turgor. NEURO: No focal deficits. Alert and oriented x3. Gait steady. PSYCH: Normal affect. No signs of depression or anxiety. Course Course Level of Care: Express Care Visit Vital Signs Vital signs: Vital Signs Temperature 98.4 F 02/22/24 11:26 Pulse Rate 88 02/22/24 11:26 Respiratory Rate 20 02/22/24 11:26 Blood Pressure 112/64 02/22/24 11:26 Pulse Oximetry 98 02/22/24 11:26 Oxygen Delivery Room Air 02/22/24 11:26 Temperature 98.4 F 02/22/24 11:26 Pulse Rate 88 02/22/24 11:26 Respiratory Rate 20 12/23/24 11:26 Blood Pressure 112/64 12/23/24 11:26 Pulse Oximetry 98 02/22/24 11:26 Oxygen Delivery Room Air 02/22/24 11:26 Reviewed Procedures Other Procedure Procedure 1: Other Procedure: Bilateral eyes were anesthetized with 1 drop of tetracaine and anesthesia was achieved. The eyes were flushed with eye wash. Lid was inverted and examined. Cornea was dyed with fluorescein and 0 abrasions or ulcerations were noted bilaterally. Pt tolerated procedure well. MDM - Eye Problem MDM Narrative Medical decision making narrative: Patient's with lamp exam shows no corneal abrasions/ulcerations. States she is starting to develop cold symptoms such as rhinorrhea. Likely eye symptoms are due to viral conjunctivitis. Recommend antihistamine eyedrops such as Zaditor. Patient agrees with plan. Recommend follow-up with eye doctor if symptoms worsen. Differential Diagnosis Differential diagnosis: Likely corneal abrasion and conjunctivitis Critical Care Time Critical Care Time Critical Care Time: No Discharge Plan Discharge Clinical Impression: Conjunctivitis Qualifiers: Conjunctivitis type: unspecified Laterality: bilateral Qualified Code(s): H10.9 - Unspecified conjunctivitis Patient Disposition: Home, Self-Care Condition: Stable Instructions: Conjunctivitis (ED) Additional Instructions: Your eye exam shows no corneal abrasions. You may be developing a pinkeye related to cold symptoms. Please use an antihistamine eyedrops such as Zaditor to help with the itching and irritation. Try not to scratch or rub your eyes. Follow-up with an eye doctor towards the end of the week if symptoms are not improving, or go to the ER if symptoms worsen. Patient Language: [place] Prescriptions: No Action aspirin [Baby Aspirin] 81 mg Tablet,Chewable 81 mg PO DAILY lisinopril 20 mg tablet 20 mg PO DAILY primidone 250 mg tablet 250 mg PO BID albuterol sulfate 90 mcg/actuation HFA aerosol inhaler INHALATION pregabalin 100 mg capsule Follow-up/Referrals: Eri,MINH [place]aya [Primary Care Provider] - Time of Disposition: 12:21
== END 2024-02-22 12:25 | disposition home or self-care (01) ==
PROVIDERS: Emergency Provider Nurse Practitioner; PCP Nurse Practitioner Family
DX: H10.9 Unspecified conjunctivitis (principal); F17.210 Nicotine dependence, cigarettes, uncomplicated; I10 Essential (primary) hypertension; G20.A1 Parkinson's disease without dyskinesia, without mention of fluctuations
CPT/HCPCS: 99213; A9270; G0463